=== PATIENT | male | born 1975 | race Two or more races ===

== ENCOUNTER 2019-09-15 09:00 | Emergency (ER) | payer BC ==
--- NOTE | 2019-09-15 10:03 | EDM.PDOC ---
ED HPI GENERAL MEDICAL PROBLEM - General Chief Complaint: Diabetic Complaint Stated Complaint: HIGH BLOOD SUGAR Time Seen by Provider: 09/15/19 09:58 Source of Information: Reports: Patient History Limitations: Reports: No Limitations - History of Present Illness INITIAL COMMENTS - FREE TEXT/NARRATIVE: ptBrayan is a 44 y/o male w/ PMH of HTN, DM II, and obesity presenting today with right eye discomfort and surrounding skin/facial pain since this AM. Mentions his BG has been fluctuating these past 3-days, with highs of 250 and lows of 175. Mentions he is compliant with his medications. Denies any changes in vision but staters increased tearing. +mild headache but denies any other discomfort including chest pain, SOB, diaphoresis, nausea and/or vomiting. Denies wearing glasses or having had experienced any trauma to that eye as well. - Related Data Allergies Allergy/AdvReac Type Severity Reaction Status Date / Time No Known Allergies Allergy Verified 09/15/19 09:15 Home Meds: Home Meds Diazepam [Valium] 10 mg PO Q8HR PRN 09/15/19 [History] Escitalopram [Lexapro] 10 mg PO DAILY 09/15/19 [History] Furosemide [Lasix] 1 tab PO DAILY 09/15/19 [History] Gabapentin [Neurontin] 300 mg PO BID 09/15/19 [History] Insulin Glarg,Human.Rec.Analog [Lantus] 20 unit SQ BEDTIME 09/15/19 [History] Losartan [Cozaar] 1 tab PO DAILY 09/15/19 [History] Meloxicam 1 tab PO DAILY 09/15/19 [History] Metoprolol Succinate [Toprol XL 50mg] 1 tab PO DAILY 09/15/19 [History] Pravastatin [Pravachol] 40 mg PO DAILY 09/15/19 [History] amLODIPine Besylate [Norvasc] 10 mg PO DAILY 09/15/19 [History] cloNIDine HCl [Catapres] 1 tab PO TID 09/15/19 [History] hydrALAZINE [Apresoline] 25 mg PO DAILY 09/15/19 [History] metFORMIN [Glucophage XR] 2 tab PO BEDTIME 09/15/19 [History] Past Medical History Cardiovascular History: Reports: High Cholesterol, Hypertension Psychiatric History: Reports: Anxiety Endocrine/Metabolic History: Reports: Diabetes, Type II - Infectious Disease History Infectious Disease History: Reports: Chicken Pox Social & Family History - Tobacco Use Smoking Status *Q: Former Smoker Used Tobacco, but Quit: Yes Month/Year Tobacco Last Used: 2013 - Recreational Drug Use Recreational Drug Use: No ED ROS GENERAL - Review of Systems Review Of Systems: See Below Constitutional: Denies: Fever, Chills HEENT: Reports: Other (right eye discomfort w/ increased tearing. ). Denies: Contact Lenses Respiratory: Reports: No Symptoms Cardiovascular: Reports: No Symptoms Endocrine: Reports: High Glucose GI/Abdominal: Reports: No Symptoms. Denies: Abdominal Pain, Anorexia : Reports: No Symptoms Musculoskeletal: Reports: No Symptoms Skin: Reports: No Symptoms. Denies: Rash Neurological: Reports: Headache (mild ) Psychiatric: Reports: No Symptoms ED EXAM GENERAL NO PERIP PULSE - Physical Exam Exam: See Below Exam Limited By: No Limitations General Appearance: Alert, No Apparent Distress Eye Exam: Right Eye: Other (right eye: no flurocein uptake , no photophobia. light reflex and consenual reflex intact. FROM . no abrasions noted. Increased tearing of right eye. NO abnormalities of both eyes noted. Minimal injection of right eye. ) Ears: Normal External Exam Throat/Mouth: Normal Inspection Head: Atraumatic, Normocephalic, Other (no facial swelling, no rash , lesions noted in periorbital region ) Respiratory/Chest: No Respiratory Distress Cardiovascular: Normal Peripheral Pulses, Regular Rate, Rhythm GI/Abdominal: Normal Bowel Sounds, Soft, Non-Tender Extremities: Normal Inspection Neurological: Alert, Oriented Psychiatric: Normal Affect, Normal Mood Course - Vital Signs Last Recorded V/S: Last Vital Signs Temp 97.2 F 09/15/19 09:10 Pulse 68 09/15/19 09:10 Resp 18 09/15/19 09:10 BP 180/111 H 09/15/19 09:10 Pulse Ox 99 09/15/19 09:10 - Orders/Labs/Meds Labs: Laboratory Tests 09/15/19 Range/Units 09:12 POC Glucose 133 H (60-110) mg/dL - Re-Assessments/Exams Free Text/Narrative Re-Assessment/Exam: BG in ER: 130. Snellen eye exam showed no abnormalities. 09/15/19 10:03 Departure - Departure Time of Disposition: 10:03 Disposition: Home, Self-Care 01 Clinical Impression: Hyperglycemia - Discharge Information Instructions: Hyperglycemia, [id number] Referrals: PCP,Not In Area [Primary Care Provider] - Care Plan Goals: Patient advised to follow-up with a PCP in near future especially if symptoms worsen. Advised if rash and or lesions develop 9especially around the eye) OR if vision changes or symptoms of Headache or chest pain develop to return Immediately. Advised to stay home from work today and follow up w/ PCP within 1-week Advised not continue to use OTC eye drops except for saline. ADvised to return if new symptoms develop.
== END 2019-09-15 10:25 | disposition home or self-care (01) ==
LOC: MW.ED 09:00
DX: E11.65 Type 2 diabetes mellitus with hyperglycemia (principal); I10 Essential (primary) hypertension; E78.00 Pure hypercholesterolemia, unspecified; F41.9 Anxiety disorder, unspecified; E66.9 Obesity, unspecified; Z68.41 Body mass index [BMI] 40.0-44.9, adult; Z79.4 Long term (current) use of insulin; Z79.899 Other long term (current) drug therapy; Z87.891 Personal history of nicotine dependence
CPT/HCPCS: 82962; 99283